=== PATIENT | female | born 1950 | race Caucasian/White ===

== ENCOUNTER 2022-09-07 14:05 | Emergency (ER) | payer MEDICAID ==
[~2022-09-07] VITALS: Ht 160 cm; Wt 65.8 kg
[2022-09-07 14:27] VITALS: BP 164/72
--- NOTE | 2022-09-07 16:05 | NUR ---
72YO FEMALE PT BIB SON C/O L HAND PAIN [id number]. REPORTS FALLING ONTO HAND AND FACE [id number] AGO -LOC . STATES DELAYED MEDICAL CARE DUE TO INSURANCE REASONS. LIMITED ROM W/ DISCOMFORT +NUMBING -LOSS OF SENSATION. HAND W/O VISIBLE DEFORMITY, CAP REFILL <3 THROUGHOUT. DENIES PAIN AT THIS TIME. PT AAOX4, NO VISIBLE DISTRESS. HOB POSITIONED PER COMFORT. HX: DENIES NKA
--- NOTE | 2022-09-07 16:12 | NUR ---
PT PLACED IN 4" ORTHO-GLASS ULNAR GUTTER SPLINT AND WTRAPPED WITH 3" BREEZY WRAPS X2 CMS WNL BEFORE AND AFTER, ERMD NOTIFIED.
[2022-09-07 16:16] VITALS: BP 143/86
--- NOTE | 2022-09-07 16:34 | NUR ---
Patient discharged with v/s stable. Written and verbal after care instructions FOR FINGER FRACTURE given and explained. Patient verbalized understanding. Ambulatory with steady gait. All questions addressed prior to discharge. Advised to follow up with PMD.
--- NOTE | 2022-09-07 16:35 | NUR ---
The patient's care was reviewed and supervised by Coral Peraza RN.
== END 2022-09-07 16:34 | disposition home or self-care (01) ==
LOC: MED 14:05
DX: S62.617A Displaced fracture of proximal phalanx of left little finger, initial encounter for closed fracture (principal); W19.XXXA Unspecified fall, initial encounter; Y93.89 Activity, other specified; Y92.89 Other specified places as the place of occurrence of the external cause; Y99.8 Other external cause status
CPT/HCPCS: 73130; 99283